=== PATIENT | female | born 1950 | race Caucasian/White ===

== ENCOUNTER 2018-01-24 23:09 | Emergency (ER) | payer MEDICARE ==
[~2018-01-24] VITALS: Ht 165.1 cm; Wt 115.7 kg
[~2018-01-24 23:09] MED LIST: Bactrim Ds Tab1 EACH PO; CARV25 PO; CARV3.125; CARVEDILOL; CREON DR 24,001 EACH PO; DABI150C PO; DILT120ERA; DULO30 PO; GLIM2 PO; GLIPIZIDE; HYDACE5 PO; LISI20 PO; LISINOPRIL; MAGNESIUM; METF500; METO25ER; METO50ER; TOUJEO SOL300 UNIT/1 SC; WARF5; [UNRECOGNIZED DRUG - REMARK]
[2018-01-24] MEDS ORDERED: BUPR75 (23:20)
[2018-01-24] MEDS ORDERED: FURO100EL PO (23:20)
[2018-01-24] MEDS ORDERED: POTA10T PO (23:21)
[2018-01-25] MEDS ORDERED: IBUP600 PO (00:22)
[2018-01-25] MEDS ORDERED: VICODIN 5-3001 EACH PO (00:22)
== END 2018-01-25 00:52 | disposition home or self-care (01) ==
LOC: ER 23:09
DX: S42.211A Unspecified displaced fracture of surgical neck of right humerus, initial encounter for closed fracture (principal); I48.91 Unspecified atrial fibrillation; E11.9 Type 2 diabetes mellitus without complications; Z88.8 Allergy status to other drugs, medicaments and biological substances; Z88.5 Allergy status to narcotic agent; Z79.899 Other long term (current) drug therapy; Z79.4 Long term (current) use of insulin; Z87.891 Personal history of nicotine dependence; W18.30XA Fall on same level, unspecified, initial encounter
CPT/HCPCS: 29105; 73060; 99283-25

== ENCOUNTER 2021-11-05 05:05 | Day surgery (SDC) | payer MEDICARE, OTHER ==
[~2021-11-05 05:05] MED LIST changes: +ALDACTONE25 MG PO; +BUPR75; +FERSU300 PO; +FURO100EL PO; +IBUP600 PO; +LATA.005SO BOTHEYES; +MAGNESIUM OXID500 MG PO; +METF500 PO; +MULVITA PO; +ONDA4 PO; +POTA10T PO; +SILD25T PO; +VICODIN 5-3001 EACH PO; +VITAMIN D31000 UNI1 PO; +WARF5 PO; +WARF7.5 PO; +ZINC15 PO
== END 2021-11-05 15:41 | disposition home or self-care (01) ==
LOC: ATC 05:05
DX: D50.8 Other iron deficiency anemias (principal); G47.33 Obstructive sleep apnea (adult) (pediatric); E66.9 Obesity, unspecified; E11.40 Type 2 diabetes mellitus with diabetic neuropathy, unspecified; Z79.84 Long term (current) use of oral hypoglycemic drugs; Z79.01 Long term (current) use of anticoagulants; Z88.8 Allergy status to other drugs, medicaments and biological substances; Z68.41 Body mass index [BMI] 40.0-44.9, adult; E11.22 Type 2 diabetes mellitus with diabetic chronic kidney disease; I12.9 Hypertensive chronic kidney disease with stage 1 through stage 4 chronic kidney disease, or unspecified chronic kidney disease; N18.32 Chronic kidney disease, stage 3b; N25.81 Secondary hyperparathyroidism of renal origin; N20.0 Calculus of kidney; Z87.891 Personal history of nicotine dependence
CPT/HCPCS: 96365; J2916

== ENCOUNTER 2021-11-09 04:32 | Day surgery (SDC) | payer MEDICARE, OTHER | END 2021-11-09 15:29 | disposition home or self-care (01) | LOC: ATC 04:32 | DX: D50.8 Other iron deficiency anemias (principal) | CPT/HCPCS: 96365; J2916 ==

== ENCOUNTER 2021-11-15 01:26 | Day surgery (SDC) | payer MEDICARE, OTHER | END 2021-11-15 14:42 | disposition home or self-care (01) | LOC: ATC 01:26 | DX: D50.8 Other iron deficiency anemias (principal); I12.9 Hypertensive chronic kidney disease with stage 1 through stage 4 chronic kidney disease, or unspecified chronic kidney disease; N18.32 Chronic kidney disease, stage 3b; N25.81 Secondary hyperparathyroidism of renal origin | CPT/HCPCS: 96365; J2916 ==

== ENCOUNTER 2021-11-17 01:09 | Day surgery (SDC) | payer MEDICARE, OTHER | END 2021-11-17 14:50 | disposition home or self-care (01) | LOC: ATC 01:09 | DX: D50.8 Other iron deficiency anemias (principal); I12.9 Hypertensive chronic kidney disease with stage 1 through stage 4 chronic kidney disease, or unspecified chronic kidney disease; E11.22 Type 2 diabetes mellitus with diabetic chronic kidney disease; N18.32 Chronic kidney disease, stage 3b; E11.40 Type 2 diabetes mellitus with diabetic neuropathy, unspecified; N25.81 Secondary hyperparathyroidism of renal origin; Z88.4 Allergy status to anesthetic agent; Z88.5 Allergy status to narcotic agent; Z88.8 Allergy status to other drugs, medicaments and biological substances; Z91.048 Other nonmedicinal substance allergy status | CPT/HCPCS: 96365; J2916 ==

== ENCOUNTER 2021-12-29 02:25 | Day surgery (SDC) | payer MEDICARE, OTHER | END 2021-12-29 15:08 | disposition home or self-care (01) | LOC: ATC 02:25 | DX: D50.8 Other iron deficiency anemias (principal); E66.9 Obesity, unspecified; E11.40 Type 2 diabetes mellitus with diabetic neuropathy, unspecified; E11.22 Type 2 diabetes mellitus with diabetic chronic kidney disease; I12.0 Hypertensive chronic kidney disease with stage 5 chronic kidney disease or end stage renal disease; N18.32 Chronic kidney disease, stage 3b; N25.81 Secondary hyperparathyroidism of renal origin; Z79.84 Long term (current) use of oral hypoglycemic drugs; Z79.01 Long term (current) use of anticoagulants; Z88.5 Allergy status to narcotic agent; Z88.8 Allergy status to other drugs, medicaments and biological substances; Z68.41 Body mass index [BMI] 40.0-44.9, adult | CPT/HCPCS: 96365; J2916 ==

== ENCOUNTER 2021-12-30 01:25 | Day surgery (SDC) | payer MEDICARE, OTHER | END 2021-12-30 14:30 | disposition home or self-care (01) | LOC: ATC 01:25 | DX: D50.8 Other iron deficiency anemias (principal); E66.9 Obesity, unspecified; E11.40 Type 2 diabetes mellitus with diabetic neuropathy, unspecified; E11.22 Type 2 diabetes mellitus with diabetic chronic kidney disease; I12.0 Hypertensive chronic kidney disease with stage 5 chronic kidney disease or end stage renal disease; N18.32 Chronic kidney disease, stage 3b; N25.81 Secondary hyperparathyroidism of renal origin; Z79.84 Long term (current) use of oral hypoglycemic drugs; Z79.01 Long term (current) use of anticoagulants; Z88.5 Allergy status to narcotic agent; Z88.8 Allergy status to other drugs, medicaments and biological substances; Z68.41 Body mass index [BMI] 40.0-44.9, adult | CPT/HCPCS: 96365; J2916 ==

== ENCOUNTER 2021-12-31 00:47 | Day surgery (SDC) | payer MEDICARE, OTHER | END 2021-12-31 14:41 | disposition home or self-care (01) | LOC: ATC 00:47 | DX: D50.8 Other iron deficiency anemias (principal); E66.9 Obesity, unspecified; E11.40 Type 2 diabetes mellitus with diabetic neuropathy, unspecified; E11.22 Type 2 diabetes mellitus with diabetic chronic kidney disease; I12.0 Hypertensive chronic kidney disease with stage 5 chronic kidney disease or end stage renal disease; N18.32 Chronic kidney disease, stage 3b; N25.81 Secondary hyperparathyroidism of renal origin; Z79.84 Long term (current) use of oral hypoglycemic drugs; Z79.01 Long term (current) use of anticoagulants; Z88.5 Allergy status to narcotic agent; Z88.8 Allergy status to other drugs, medicaments and biological substances; Z68.41 Body mass index [BMI] 40.0-44.9, adult | CPT/HCPCS: 96365; J2916 ==

== ENCOUNTER 2022-01-03 05:47 | Day surgery (SDC) | payer MEDICARE, OTHER | END 2022-01-03 15:48 | disposition home or self-care (01) | LOC: ATC 05:47 | DX: D50.8 Other iron deficiency anemias (principal); E66.9 Obesity, unspecified; E11.40 Type 2 diabetes mellitus with diabetic neuropathy, unspecified; E11.22 Type 2 diabetes mellitus with diabetic chronic kidney disease; I12.0 Hypertensive chronic kidney disease with stage 5 chronic kidney disease or end stage renal disease; N18.32 Chronic kidney disease, stage 3b; N25.81 Secondary hyperparathyroidism of renal origin; Z79.84 Long term (current) use of oral hypoglycemic drugs; Z79.01 Long term (current) use of anticoagulants; Z88.5 Allergy status to narcotic agent; Z88.8 Allergy status to other drugs, medicaments and biological substances; Z68.41 Body mass index [BMI] 40.0-44.9, adult | CPT/HCPCS: 96365; J2916 ==

== ENCOUNTER 2022-01-05 01:28 | Day surgery (SDC) | payer MEDICARE, OTHER | END 2022-01-05 14:39 | disposition home or self-care (01) | LOC: ATC 01:28 | DX: D50.8 Other iron deficiency anemias (principal); I12.9 Hypertensive chronic kidney disease with stage 1 through stage 4 chronic kidney disease, or unspecified chronic kidney disease; N18.2 Chronic kidney disease, stage 2 (mild) | CPT/HCPCS: 96365; J2916 ==

== ENCOUNTER 2022-01-07 01:04 | Day surgery (SDC) | payer MEDICARE, OTHER | END 2022-01-07 14:35 | disposition home or self-care (01) | LOC: ATC 01:04 | DX: D50.8 Other iron deficiency anemias (principal); E66.9 Obesity, unspecified; E11.22 Type 2 diabetes mellitus with diabetic chronic kidney disease; G47.30 Sleep apnea, unspecified; Z79.84 Long term (current) use of oral hypoglycemic drugs; I12.9 Hypertensive chronic kidney disease with stage 1 through stage 4 chronic kidney disease, or unspecified chronic kidney disease; N18.32 Chronic kidney disease, stage 3b; N25.81 Secondary hyperparathyroidism of renal origin; N20.0 Calculus of kidney | CPT/HCPCS: 96365; J2916 ==

== ENCOUNTER 2022-01-10 00:42 | Day surgery (SDC) | payer MEDICARE, OTHER | END 2022-01-10 15:18 | disposition home or self-care (01) | LOC: ATC 00:42 | DX: D50.8 Other iron deficiency anemias (principal); I12.9 Hypertensive chronic kidney disease with stage 1 through stage 4 chronic kidney disease, or unspecified chronic kidney disease; E11.22 Type 2 diabetes mellitus with diabetic chronic kidney disease; N18.32 Chronic kidney disease, stage 3b; E66.9 Obesity, unspecified; Z68.41 Body mass index [BMI] 40.0-44.9, adult; Z88.4 Allergy status to anesthetic agent; Z88.5 Allergy status to narcotic agent; Z88.8 Allergy status to other drugs, medicaments and biological substances; Z91.048 Other nonmedicinal substance allergy status; Z87.891 Personal history of nicotine dependence | CPT/HCPCS: 96365; J2916 ==

== ENCOUNTER 2023-04-12 22:25 | Emergency (ER) | payer MEDICARE, OTHER ==
[~2023-04-12] VITALS: Ht 160 cm; Wt 93.9 kg
[~2023-04-12 22:25] MED LIST changes: -LATA.005SO BOTHEYES; +PRESERVISION A1 EAC2 PO; +WARF1 PO; -WARF7.5 PO
[2023-04-12 22:43] VITALS: BP 149/112
[2023-04-12] MEDS ORDERED: BUMETANIDE0.5 M1 PO (22:47)
[2023-04-12] MEDS ORDERED: AMOCLA875 PO (23:22)
== END 2023-04-12 23:45 | disposition home or self-care (01) ==
LOC: ER 22:25
DX: J32.9 Chronic sinusitis, unspecified (principal); Z20.822 Contact with and (suspected) exposure to COVID-19; I48.91 Unspecified atrial fibrillation; E11.9 Type 2 diabetes mellitus without complications; Z87.891 Personal history of nicotine dependence
CPT/HCPCS: 99283